=== PATIENT | male | born 1990 | race Caucasian/White ===

== ENCOUNTER 2020-09-07 22:38 | Emergency (ER) | payer SELFPAY ==
[2020-09-07] MEDS ORDERED: cefTRIAXone 2 GM, Lidocaine 1% 4.2 ML IM ONE ×2 (23:00)
[2020-09-07] MEDS ORDERED: Diphtheria,Pertussis(Acell),Tetanus Vaccine 0.5 ML Syringe IM ONE (23:00)
[2020-09-07] MEDS ORDERED: cefTRIAXone 1 GM Vial ONE (23:09)
--- NOTE | 2020-09-07 23:18 | EDM.PDOC ---
ED HPI GENERAL MEDICAL PROBLEM - General Chief Complaint: Bite:Animal, Insect Stated Complaint: DOG BITE Time Seen by Provider: 09/07/20 22:50 Source of Information: Reports: Patient History Limitations: Reports: No Limitations - History of Present Illness INITIAL COMMENTS - FREE TEXT/NARRATIVE: Jamse is a 30-year-old male presenting to the ED for evaluation of a dog bite to his scrotum. The patient states that his dog was overtired and started to get "the Zoomies" and gets mouthy and excitable. Apparently the dog bit him in the scrotum causing a sizable avulsion laceration on the right side of the scrotum measuring approximately 5.9 x 3.7 cm. Bleeding was controlled but the area of the scrotum retracted exposing subcutaneous tissue. Scrotum Pain Score (Numeric/FACES): 2 - Related Data Allergies Allergy/AdvReac Type Severity Reaction Status Date / Time No Known Allergies Allergy Verified 09/07/20 22:53 Home Meds: Home Meds NK [No Known Home Meds] 09/07/20 [History] Past Medical History HEENT History: Reports: Impaired Vision Musculoskeletal History: Reports: Fracture Psychiatric History: Reports: Anxiety - Infectious Disease History Infectious Disease History: Reports: Chicken Pox - Past Surgical History HEENT Surgical History: Reports: Adenoidectomy, Tonsillectomy Social & Family History - Tobacco Use Tobacco Use Status *Q: Never Tobacco User - Caffeine Use Caffeine Use: Reports: Coffee, Soda - Alcohol Use Days Per Week of Alcohol Use: 2 Number of Drinks Per Day: 3 Total Drinks Per Week: 6 - Recreational Drug Use Recreational Drug Use: Yes Drug Use in Last 12 Months: Yes Recreational Drug Type: Reports: Marijuana/Hashish ED ROS GENERAL - Review of Systems Review Of Systems: See Below Constitutional: Reports: No Symptoms HEENT: Reports: No Symptoms Respiratory: Reports: No Symptoms Cardiovascular: Reports: No Symptoms Endocrine: Reports: No Symptoms GI/Abdominal: Reports: No Symptoms : Reports: No Symptoms Musculoskeletal: Reports: No Symptoms Skin: Reports: Wound (Avulsion laceration on the right scrotum) Neurological: Reports: No Symptoms Psychiatric: Reports: No Symptoms Hematologic/Lymphatic: Reports: No Symptoms Immunologic: Reports: No Symptoms ED EXAM, ANIMAL BITE - Physical Exam Exam: See Below Exam Limited By: No Limitations General Appearance: Alert, No Apparent Distress, Anxious (Male) Exam: Other (5.9 x 3.7 cm avulsion laceration on the right scrotum into the subcutaneous tissue.). No: Scrotal Swelling, Scrotum Tenderness (L), Scrotum Tenderness (R), Testicular Tenderness (L), Testicular Tenderness (R) ED ANIMAL BITE PROCEDURES - Laceration/Wound Repair Right Scrotum Lac/Wound Length In cm: 9.6 (5.9 x 3.7 cm) Appearance: Subcutaneous Distal NVT: Neuro & Vascular Intact Anesthetic Type: Local Local Anesthesia - Lidocaine (Xylocaine): 1% Plain Local Anesthetic Volume: 3cc Skin Prep: Saline Exploration/Debridement/Repair: Wound Explored, In a Bloodless Field, Explored to Base Closed With: Sutures Suture Size: 4-0 # of Sutures: 9 Suture Type: Nylon, Interrupted Sterile Dressing Applied: Nurse Tetanus Status Addressed: Yes Complications: No Course - Vital Signs Last Recorded V/S: Last Vital Signs Temp 36.5 C 09/07/20 22:54 Pulse 92 09/07/20 22:54 Resp 16 09/07/20 22:54 BP 127/81 09/07/20 22:54 Pulse Ox 98 09/07/20 22:54 - Orders/Labs/Meds Orders: Active Orders 24 hr Category Date Time Status Vaccines to be Administered [RC] PER UNIT ROUTINE Care 09/07/20 23:00 Ordered Bacitracin [Bacitracin Oint 1 GM] Med 09/07/20 23:39 Once 1 dose TOP ONETIME ONE Meds: Medications Discontinued Medications Generic Name Dose Route Start Last Admin Trade Name Jean Claude PRN Reason Stop Dose Admin Bacitracin Confirm 09/07/20 23:24 09/07/20 23:33 Bacitracin Oint 1 Gm U/D Packet Administered 09/07/20 23:25 1 dose Dose Administration 1 dose .ROUTE .STK-MED ONE Ceftriaxone Sodium Confirm 09/07/20 23:09 09/07/20 23:33 Ceftriaxone 1 Gm Vial Administered 09/07/20 23:10 Not Given Dose 2 gm .ROUTE .STK-MED ONE Ceftriaxone Sodium 2 gm/ 0 gm 09/07/20 23:00 09/07/20 23:32 Lidocaine HCl 4.2 ml IM 09/07/20 23:01 2 inj ONETIME ONE Administration Diphtheria/Tetanus/Acell Pertussis 0.5 ml 09/07/20 23:00 09/07/20 23:05 Diphtheria,Pertussis(Acell),Tetanus Vaccine 0.5 Ml Syringe IM 09/07/20 23:01 0.5 ml .ONCE ONE Administration Lidocaine HCl 5 ml 09/07/20 23:00 09/07/20 23:05 Lidocaine 1% 5 Ml Sdv INJECT 09/07/20 23:01 5 ml ONETIME ONE Administration Lidocaine HCl Confirm 09/07/20 23:09 09/07/20 23:33 Lidocaine 1% 5 Ml Sdv Administered 09/07/20 23:10 Not Given Dose 5 ml .ROUTE .[facility] ONE - Re-Assessments/Exams Free Text/Narrative Re-Assessment/Exam: 09/07/20 23:21 the patient sustained an avulsion type laceration to his right sided scrotum secondary to his dog biting him. His dog is up-to-date on its shots. I was able to clean and repair the scrotum requiring 9 simple interrupted sutures with alignment of the avulsion. There was no under mining that was needed. There was good coaptation of wound edges and the light coating of bacitracin was applied over the wound. Over this sterile dressing with just gauze was applied. We did give the patient Rocephin 1 g IM and we will put him on Augmentin 875 mg twice daily for the next 7 days to treat for the dog bite. His Tdap was boosted today as it had been 2002 since his last Tdap. The sutures will need to be removed in 7 to 10 days which can be done at his primary care provider's office. Indications to return to the ED or clinic were discussed wit h the patient. All questions were answered prior to discharge. Departure - Departure Time of Disposition: 23:39 Disposition: Home, Self-Care 01 Clinical Impression: Laceration of scrotum Qualifiers: Encounter type: initial encounter Qualified Code(s): S31.31XA - Laceration without foreign body of scrotum and testes, initial encounter Dog bite Qualifiers: Encounter type: initial encounter Qualified Code(s): W54.0XXA - Bitten by dog, initial encounter - Discharge Information Instructions: Animal Bite, Adult, Laceration Care, Adult, [id number] Referrals: PCP,None [Primary Care Provider] - Forms: ED Department Discharge Care Plan Goals: I am putting you on Augmentin 875 mg twice daily for the next 7 days to protect from infection from the dog bite. Your tetanus has been booster today as your last tetanus was in 2002. We have initiated antibiotic therapy with Rocephin 1 g intramuscularly to start to treat for potential infection. We were able to close the wound using 9 sutures which will need to be removed in 7 to 10 days. This can be done at your local provider's office or clinic. Please keep the wound clean and dry. No soaking in the tub for the next 24 hours until the scab forms. Sepsis Event Note (ED) - Evaluation Sepsis Screening Result: No Definite Risk - Focused Exam Vital Signs: Vital Signs Temp Pulse Resp BP Pulse Ox 09/07/20 22:54 36.5 C 92 16 127/81 98 09/07/20 22:50 36.5 C 92 16 127/81 98 - Problem List & Annotations (1) Dog bite SNOMED Code(s): 770815472, 213908985 Code(s): W54.0XXA - BITTEN BY DOG, INITIAL ENCOUNTER Status: Acute Priority: Medium Current Visit: Yes Qualifiers: Encounter type: initial encounter Qualified Code(s): W54.0XXA - Bitten by dog, initial encounter (2) Laceration of scrotum SNOMED Code(s): 813205780 Code(s): S31.31XA - LACERATION W/O FOREIGN BODY OF SCROTUM AND TESTES, INIT Status: Acute Priority: High Current Visit: Yes Qualifiers: Encounter type: initial encounter Qualified Code(s): S31.31XA - Laceration without foreign body of scrotum and testes, initial encounter - Problem List Review Problem List Initiated/Reviewed/Updated: Yes - My Orders Last 24 Hours: My Active Orders 09/07/20 23:00 Vaccines to be Administered [RC] PER UNIT ROUTINE 09/07/20 23:39 Bacitracin [Bacitracin Oint 1 GM] 1 dose TOP ONETIME ONE - Assessment/Plan Last 24 Hours: My Active Orders 09/07/20 23:00 Vaccines to be Administered [RC] PER UNIT ROUTINE 09/07/20 23:39 Bacitracin [Bacitracin Oint 1 GM] 1 dose TOP ONETIME ONE
[2020-09-07] MEDS: Bacitracin Oint 1 GM U/D Packet ONE ×2 (23:33→23:40)
[2020-09-07] MEDS ORDERED: Bacitracin Oint 1 GM U/D Packet TOP ONE (23:39)
== END 2020-09-07 23:51 | disposition home or self-care (01) ==
LOC: JP.ED 22:38
DX: S31.31XA Laceration without foreign body of scrotum and testes, initial encounter (principal); Z23 Encounter for immunization; W54.0XXA Bitten by dog, initial encounter
CPT/HCPCS: 12004; 90471; 90715; 96372; 99283; J0696